=== PATIENT | male | born 1980 | race Caucasian/White ===

== ENCOUNTER → 2017-10-29 | Outpatient (CLI) | payer OTHER ==
--- NOTE | 2017-10-29 10:08 | XR ---
EXAMINATION TYPE: XR chest 2V DATE OF EXAM: 10/29/2017 COMPARISON: NONE HISTORY: Chest pain TECHNIQUE: Frontal and lateral views of the chest are obtained. FINDINGS: There is no focal air space opacity. No evidence for pneumothorax. No pleural effusion. The cardiac silhouette size is within normal limits. The osseous structures are grossly intact. IMPRESSION: 1. No acute cardiopulmonary process.
== END | disposition home or self-care (01) ==
LOC: RADXRMAIN 09:49
PROVIDERS: ATTEND Family Medicine
DX: J18.9 Pneumonia, unspecified organism (principal)
CPT/HCPCS: 71046

== ENCOUNTER 2023-12-18 15:19 | Emergency (ER) | payer OTHER ==
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
[2023-12-18 17:38] VITALS: BP 128/79; PULSE 78; RESP 16; TEMP 97.8
== END 2023-12-18 17:37 | disposition home or self-care (01) ==
LOC: EC 15:19
CPT/HCPCS: 71045; 72125; 72128; 72131; 72170; 99284